=== PATIENT | female | born 1985 | race Caucasian/White ===

== ENCOUNTER 2023-02-06 07:25 | Inpatient (IN) | payer MEDICAID ==
[~2023-02-06] VITALS: Ht 157.5 cm; Wt 68.5 kg
[2023-02-06] MEDS ORDERED: OXYTOCIN/0.9 % SODIUM CHLORIDE 1,000 ML IV SCH (08:30)
[2023-02-06] MEDS ORDERED: TERBUTALINE SULFATE 1 MG/ML VIAL SUBCUT ONE (08:30)
[2023-02-06] MEDS ORDERED: D5LR 1,000 ML IV SCH (08:30)
[2023-02-06] MEDS ORDERED: NALBUPHINE HCL 10 MG/ML AMP IVP PRN (08:30)
[2023-02-06 09:03] LABS: BASOPHILS # (AUTO) 0.1 K/uL (0.0-0.2); BASOPHILS % (AUTO) 0.6 % (0.0-2.0); EOSINOPHILS # (AUTO) 0.1 K/uL (0.0-0.4); EOSINOPHILS % (AUTO) 1.7 % (0.0-4.0); HEMATOCRIT 29.1 % (36-48); HEMOGLOBIN 9.3 g/dL (12.0-16.0); LYMPHOCYTES # (AUTO) 1.9 K/uL (1.0-5.5); LYMPHOCYTES % (AUTO) 22.8 % (20.5-51.5); MEAN CORPUSCULAR HEMOGLOBIN 22 pg (27-31); MEAN CORPUSCULAR HGB CONC 32 % (32-36); MEAN CORPUSCULAR VOLUME 67 fL (79.0-98.0); MONOCYTES # (AUTO) 0.5 K/uL (0.0-1.0); MONOCYTES % (AUTO) 5.8 % (1.7-9.3); NEUTROPHILS # (AUTO) 5.7 K/uL (1.8-7.7); NEUTROPHILS % (AUTO) 69.1 % (40.0-70.0); PLATELET COUNT (AUTO) 196 K/uL (130-430); RED BLOOD CELL COUNT(AUTO) 4.32 MIL/uL (4.2-6.2); WHITE BLOOD COUNT (AUTO) 8.3 K/uL (4.8-10.8)
[2023-02-06 09:53] VITALS: BP_SYST 127; PULSE 57; RESP 18; TEMP 98.5
[2023-02-06 09:56] LABS: ANISOCYTOSIS 1+; HYPOCHROMASIA 1+; OVALOCYTES FEW
[2023-02-06] MEDS ORDERED: LIGHT MINERAL OIL 10 ML VIAL MC ONE (14:25)
[2023-02-06] MEDS ORDERED: LIDOCAINE PF 1% 30ML(POUR BTL) INJ ONE (14:26)
[2023-02-06] MEDS ORDERED: NALOXONE HCL 0.4 MG/ML AMP (NARCAN) ONE (14:26)
[2023-02-06] MEDS ORDERED: OXYCODONE/ACETAMINOPHEN 5-325 TABLET PO PRN (15:15)
[2023-02-06] MEDS ORDERED: IBUPROFEN 600 MG TABLET PO PRN (15:30)
[2023-02-06] MEDS: HYDROcodone/ACETAMIN 5-325 MG TAB (NORCO/ VICODIN) PO PRN (20:20)
[2023-02-06] MEDS ORDERED: SENNOSIDES 8.6 MG TABLET PO PRN (20:30)
[2023-02-07] MEDS: HYDROcodone/ACETAMIN 5-325 MG TAB (NORCO/ VICODIN) PO PRN (05:41)
[2023-02-07 06:46] LABS: HEMATOCRIT 25.7 % (36-48); HEMOGLOBIN 8.1 g/dL (12.0-16.0)
[2023-02-07] MEDS: OXYCODONE/ACETAMINOPHEN 5-325 TABLET PO PRN ×3 (08:57→15:15)
[2023-02-07] MEDS ORDERED: DOCUSATE SODIUM 100 MG CAPSULE PO SCH (09:00)
[2023-02-07] MEDS ORDERED: IBUPROFEN 600 MG TABLET PO SCH (12:00)
[2023-02-07] MEDS ORDERED: DIPHTH,PERTUSS(ACELL),TET VAC 0.5 ML VIAL (Tdap) I.M. ONE (14:30)
== END 2023-02-07 15:46 | disposition home or self-care (01) | DRG 560 ==
LOC: SPU 07:39 → OBSVTOIN 08:10
PROVIDERS: ADMIT Obstetrics & Gynecology; ATTEND Obstetrics & Gynecology
PROC: 10E0XZZ Delivery of Products of Conception, External Approach (ICD-10-PCS; principal; 2023-02-06)
DX: O69.1XX0 Labor and delivery complicated by cord around neck, with compression, not applicable or unspecified (principal); Z37.0 Single live birth; O24.429 Gestational diabetes mellitus in childbirth, unspecified control; O36.8130 Decreased fetal movements, third trimester, not applicable or unspecified; O69.3XX0 Labor and delivery complicated by short cord, not applicable or unspecified; Z3A.39 39 weeks gestation of pregnancy
CPT/HCPCS: 36415; 81002; 82962; 85018; 85025; 86592; 86886; 86900; 86901; 90715; G0378; J2001; J2310; J2590; J7120